=== PATIENT | female | born 1990 | race Caucasian/White ===

== ENCOUNTER 2021-09-25 19:04 | Emergency (ER) | payer OTHER, SELFPAY ==
[2021-09-25 19:10] VITALS: BP 155/86; PULSE 122; RESP 20; TEMP 38.6; O2SAT 98
--- NOTE | 2021-09-25 19:17 | ED.URI ---
HPI - URI/Sore Throat General Chief Complaint: Upper Respiratory Infection Stated Complaint: Fever/Low Back Pain Time Seen by Provider: 09/25/21 19:07 Source: patient, family and RN notes reviewed History of Present Illness HPI Narrative: Patient is a 30-year-old female who presents the urgent care with complaints of low back pain, fever, fatigue and body aches. Patient states she started symptoms this morning has not taken anything [id number]. States that she was advised from an on-call televisit not to treat her fever and to follow-up in urgent care . Patient states that her fever got as high as 102.5 Fahrenheit prior to arrival. Patient denies any abdominal pain, nausea, vomiting. Patient denies of any ill contacts. States that she has not had COVID and she has been vaccinated. No other acute complaints. No acute distress noted. Patient aware of the plan of care. Some parts of this dictation were generated by voice recognition software and may contain typographical and/or grammatical inaccuracies. Related Data Home Medications Medication Instructions Recorded Confirmed nifedipine 30 mg PO DAILY 09/25/21 09/25/21 Allergies Allergy/AdvReac Type Severity Reaction Status Date / Time cefprozil [From Cefzil] Allergy Rash Verified 09/25/21 19:16 Review of Systems Review of Systems: CONSTITUTIONAL: Reports of fever, chills, fatigue EYES: Denies visual changes, redness, or discharge. ENT: Denies of sore throat, otalgia, rhinorrhea and congestion CARDIOVASCULAR: Denies chest pain, palpitations, or edema. RESPIRATORY: Denies cough or dyspnea. GASTROINTESTINAL: Denies abdominal pain, nausea, vomiting, or diarrhea. GENITOURINARY: Denies dysuria or hematuria. SKIN: Denies rash or itching. MUSCULOSKELETAL: Reports of low back pain and body aches es back pain, joint pain, or myalgia. NEUROLOGIC: Denies headache, numbness, or weakness. PMFSH Comments At the time of my signature, I reviewed and agree with the nursing past medical, surgical, social, and family history. There is no relevant family history pertinent to the patient complaint. Exam Narrative: GENERAL: This is a well-nourished, well-developed patient, in no apparent distress. HEAD: normocephalic, atraumatic. EYES: PERRL. Sclera clear/white. Vision is grossly intact. EARS: External ears normal, auditory canals clear and without drainage, notable reconstruction to the left TM/scarring. Bilateral TMs without perforation. Hearing grossly intact. NOSE: External nose normal with no obvious nasal discharge, nares without redness, no rhinorrhea. THROAT: Mucous membranes moist, posterior pharynx clear. Absent tonsils. Mild postnasal drainage NECK: Neck supple CARDIOVASCULAR: Regular rate and rhythm without murmurs, gallops, or rubs. RESPIRATORY: Clear to auscultation. Breath sounds equal bilaterally. No wheezes, rales, or rhonchi. SKIN: Slightly flushed. Warm, intact with no suspicious lesions or rash, good texture and turgor. NEURO: awake, alert, and oriented to person, place and time. There were no obvious focal neurologic abnormalities. EXTREMITIES: No clubbing, cyanosis, or edema. BACK: Reports of low back pain Course Course Level of Care: Express Care Visit Vital Signs Vital signs: Vital Signs Temperature 101.4 F H 09/25/21 19:10 Pulse Rate 122 H 09/25/21 19:10 Respiratory Rate 20 09/25/21 19:10 Blood Pressure 155/86 H 09/25/21 19:10 Pulse Oximetry 98 09/25/21 19:10 Temperature 101.4 F H 09/25/21 19:10 Pulse Rate 122 H 09/25/21 19:10 Respiratory Rate 20 09/25/21 19:10 Blood Pressure 155/86 H 09/25/21 19:10 Pulse Oximetry 98 09/25/21 19:10 Reviewed- patient is informed that they may have pre-hypertension or hypertension based on a blood pressure reading in the department. I recommend the patient call the primary care provider listed on their discharge instructions or a physician of their choice this week to arrange follow-up for
== END 2021-09-25 19:58 | disposition home or self-care (01) ==
PROVIDERS: Emergency Provider Nurse Practitioner Family
DX: J02.9 Acute pharyngitis, unspecified (principal); Z20.822 Contact with and (suspected) exposure to COVID-19; E28.2 Polycystic ovarian syndrome; I10 Essential (primary) hypertension
CPT/HCPCS: 81003; 87426; 87804; 87880; 99213; C9803; G0463

== ENCOUNTER 2023-05-18 08:34 | Emergency (ER) | payer OTHER, SELFPAY ==
[2023-05-18 08:40] VITALS: BP 95/76; PULSE 95; RESP 16; TEMP 36.8; O2SAT 99
--- NOTE | 2023-05-18 09:19 | ED.SKABFB ---
HPI - Skin/Abscess/Foreign Bdy General Chief complaint: Skin/Abscess/Foreign Body Stated complaint: Rash Time Seen by Provider: 05/18/23 09:20 Source: patient Mode of arrival: ambulatory Limitations: no limitations History of Present Illness HPI narrative: 32-year-old female presented for complaint of Itchy red rash to the right side of her face, neck, and right shoulder. Onset 2 days ago. She states the rash was first noticed after taking Pepcid, however she also reports she tried on new clothes and cleared brush by the fence line 3 days before symptom onset. She has been applying Desitin cream to the face and taking it Benadryl With minimal relief. Denies lip, tongue, or throat swelling, shortness of breath or wheezing. Denies changes to soap, detergent, lotion, or any other exposures. No one else in the house or any contacts with similar symptoms. Pt is 26 weeks gestation. She contacted her obgyn stating she had hives but wanted to have it evaluated before taking a steroid. Related Data Home Medications Medication Instructions Recorded Confirmed vitamin-ferrous fumarate 1 tablet PO DAILY 05/18/23 05/18/23 28 mg iron-folic acid 800 mcg tablet ( Tablet) Allergies Allergy/AdvReac Type Severity Reaction Status Date / Time cefprozil [From Cefzil] Allergy Rash Verified 05/18/23 09:07 Review of Systems Review of Systems: CONSTITUTIONAL: Denies body aches, fever, chills, or sweats. EYES: Denies visual changes, redness, or discharge. ENT: Denies rhinorrhea, congestion CARDIOVASCULAR: Denies chest pain, palpitations, or edema. RESPIRATORY: Denies cough or dyspnea. GASTROINTESTINAL: Denies abdominal pain, nausea, vomiting, or diarrhea. SKIN: reports rash MUSCULOSKELETAL: Denies back pain, joint pain, or myalgia. NEUROLOGIC: Denies headache, numbness, tingling, or weakness. [facility] Past Medical History Medical History (Updated 05/18/23 @ 09:35 by Jeannette Bear APRN) Deafness in right ear Comments At time of signature, I have reviewed and agree with nursing past medical, surgical, social and family history unless otherwise noted. Please see nursing chart for further information. There is no relevant family history pertinent to the presenting complaint Exam Narrative: GENERAL: Well-appearing HEAD: Normocephalic, atraumatic. EYES: conjunctivae clear, and EOMI. ENT: Mucous membranes moist. Oropharynx without edema, erythema or lesions. NECK: Supple. No lymphadenopathy CHEST: Clear to auscultation. HEART: Regular rate and rhythm. SKIN: Warm, dry. Scattered vesicles on erythematous base to right face and across neck, right shoulder c/w contact dermatitis. No drainage/purulence, pain, or fluctuance. NEURO: Alert and oriented x3. Course Course Emergency Course: Patient is aware of diagnosis, understands and agrees to treatment plan. Anticipatory guidance given. Patient agrees to follow-up as directed and is aware of reasons to seek care at the emergency department. Portions of this record may have been created with voice recognition software Level of Care: Express Care Visit Vital Signs Vital signs: Vital Signs Temperature 98.3 F 05/18/23 08:40 Pulse Rate 95 05/18/23 08:40 Respiratory Rate 16 05/18/23 08:40 Blood Pressure 95/76 L 05/18/23 08:40 Pulse Oximetry 99 05/18/23 08:40 Oxygen Delivery Room Air 05/18/23 08:40 Temperature 98.3 F 05/18/23 08:40 Pulse Rate 95 05/18/23 08:40 Respiratory Rate 16 05/18/23 08:40 Blood Pressure 95/76 L 05/18/23 08:40 Pulse Oximetry 99 05/18/23 08:40 Oxygen Delivery Room Air 05/18/23 08:40 Reviewed MDM - Skin/Abscess/Foreign Bdy MDM Narrative Medical decision making narrative: Discussed physical exam findings c/w contact dermatitis. Advised supportive measures and signs/symptoms to go to the ER. Pt is appropriate for outpt treatment and f/u. Instructed patient to go t
== END 2023-05-18 09:35 | disposition home or self-care (01) ==
PROVIDERS: Emergency Provider Nurse Practitioner Family
DX: O99.712 Diseases of the skin and subcutaneous tissue complicating pregnancy, second trimester (principal); Z3A.26 26 weeks gestation of pregnancy; L25.9 Unspecified contact dermatitis, unspecified cause
CPT/HCPCS: 99211; G0463

== ENCOUNTER 2024-03-13 09:58 | Emergency (ER) | payer OTHER, SELFPAY ==
[2024-03-13 10:11] VITALS: BP 120/73; PULSE 74; RESP 18; TEMP 36.6; O2SAT 100
--- NOTE | 2024-03-13 10:33 | ED.EAR ---
HPI - Ear Problem General Chief complaint: Ear Stated complaint: Poss ear infection Time Seen by Provider: 03/13/24 10:33 Source: patient and RN notes reviewed Mode of arrival: ambulatory Limitations: no limitations History of Present Illness HPI Narrative: 33-year-old female presents with concern for left ear pain, lymph node swelling. She reports history of surgery on that ear. She denies fever, aches, chills, sweats. She reports postnasal drainage. She denies hearing changes. MD Complaint: ear pain Related Data Allergies Allergy/AdvReac Type Severity Reaction Status Date / Time cefprozil [From Cefzil] Allergy Rash Verified 05/18/23 09:07 Review of Systems Review of Systems: CONSTITUTIONAL: Denies malaise, chills, sweats, or fever. EYES: Denies visual changes, redness, or discharge. ENT: Denies rhinorrhea, congestion, sinus pain, and sore throat. Reports left ear pain, postnasal drainage, lymph node tenderness CARDIOVASCULAR: Denies chest pain, palpitations, or edema. RESPIRATORY: Denies cough. Denies dyspnea. GASTROINTESTINAL: Denies abdominal pain, nausea, vomiting, diarrhea SKIN: Denies rash or itching. MUSCULOSKELETAL: Denies myalgia. NEUROLOGIC: Denies headache. All systems reviewed & are unremarkable except as noted in HPI and below PMFSH Past Medical History Medical History (Updated 03/13/24 @ 10:39 by Randee Harding NP) Deafness in right ear Comments At time of signature, agree with nursing past medical, surgical, social and family history. There is no relevant family history pertinent to the presenting complaint Exam Narrative: GENERAL: Well-appearing, well-nourished, and in no acute distress. HEAD: Normocephalic EYES: PERRLA, conjunctivae clear ENT: Nares clear. Mucous membranes moist. TM pearly montiel with dull light reflex on the left, sharp on the right; no tragal tenderness. Oropharynx not erythematous without lesions. Tonsils not enlarged and without exudate, no drooling, no hoarseness, no trismus, uvula midline. NECK: Supple. No lymphadenopathy CHEST: Clear to auscultation, breath sounds equal. No wheezing, rhonchi, rales, or stridor. No respiratory distress, speaks in full sentences. HEART: Regular rate and rhythm. No murmur heard. SKIN: Warm, dry, no rash. NEURO: Alert and oriented x3. PSYCH: Normal mood and affect Course Course Emergency Course: Patient is aware of diagnosis, understands and agrees to treatment plan. Anticipatory guidance given. Patient agrees to follow-up as directed and is aware of reasons to seek care at the emergency department. Portions of this record may have been created with voice recognition software Level of Care: Express [facility] Visit Vital Signs Vital signs: Vital Signs Temperature 98 F 03/13/24 10:11 Pulse Rate 74 03/13/24 10:11 Respiratory Rate 18 03/13/24 10:11 Blood Pressure 120/73 03/13/24 10:11 Pulse Oximetry 100 03/13/24 10:11 Temperature 98 F 03/13/24 10:11 Pulse Rate 74 03/13/24 10:11 Respiratory Rate 18 03/13/24 10:11 Blood Pressure 120/73 03/13/24 10:11 Pulse Oximetry 100 03/13/24 10:11 Reviewed. Medical Decision Making MDM Narrative Medical decision making narrative: I evaluated this in the [facility]. History is obtained from patient who is an independent historian and physical exam was performed.? Available medical records were reviewed. ? Exam findings and relevant testing show no acute concerns or changes; patient is non-toxic appearing and is in no distress. Differential diagnosis considered: Hunt virus, strep pharyngitis, allergic rhinitis, upper respiratory tract infection, sinusitis, rhinosinusitis, nasopharyngitis. viral pharyngitis, otitis media, otitis externa, otitis effusion, cerumen impaction, foreign body. Exam findings show no acute concerns or changes; patient is non-toxic appearing and is in no distress. Patient is appropriate for outpatient treatment and follow-up. ? D
== END 2024-03-13 10:40 | disposition home or self-care (01) ==
PROVIDERS: Emergency Provider Nurse Practitioner
DX: H73.892 Other specified disorders of tympanic membrane, left ear (principal)
CPT/HCPCS: 99213; G0463

== ENCOUNTER 2024-07-10 16:30 | Emergency (ER) | payer OTHER, SELFPAY ==
--- NOTE | 2024-07-10 16:31 | ED_ITS ---
HPI - URI/Sore Throat General Chief Complaint: Upper Respiratory Infection Stated Complaint: poss sinus infection Time Seen by Provider: 07/10/24 16:36 Source: patient, RN notes reviewed and old records reviewed Mode of arrival: ambulatory Limitations: no limitations History of Present Illness HPI Narrative: 33-year-old female presents to the [facility] with sinus congestion for 5 days. Has been using Mucinex nasal spray Patient also states that she has tried taking Ashleigh-Casco with not much relief. Treatments prior to arrival: cold medicine Related Data Allergies Allergy/AdvReac Type Severity Reaction Status Date / Time cefprozil (From Cefzil) Allergy Rash Verified 07/10/24 16:36 Review of Systems Review of Systems: All systems reviewed & are unremarkable except as noted in HPI and below Constitutional: Constitutional: Reports no additional constitutional complaints ENT: Reports as per HPI Cardiovascular: Cardiovascular: Reports no additional cardiovascular complaints, Denies chest pain and Denies dyspnea Respiratory: Respiratory: Reports no additional respiratory complaints, Denies chest congestion, Denies cough and Denies dyspnea Musculoskeletal: Musculoskeletal: Reports no additional musculoskeletal complaints Integumentary/Breasts: Skin/Breast: Reports system reviewed and no additional complaints, except as docu PMFSH Past Medical History Medical History Deafness in right ear Comments At the time of my signature, I reviewed and agree with the nursing past medical, surgical, social, and family history. There is no relevant family history pertinent to the patient complaint. Exam Const: General: cooperative, healthy appearing, comfortable, no acute distress, well developed, alert and well nourished Nutritional Appearance: well nourished Orientation/consciousness: patient oriented x3 Limitations: no limitations HENMT: Head: normal to inspection Ears: external ears normal, EAC's normal, mastoids normal, no periauricular adenopathy and TM abnormal with fluid behind the TM on the left; not bulging Face/Nose/Sinus: Normal nasal mucous m embranes and turbinates present, normal facial exam and face symmetric Face and sinus: normal facial exam, face symmetric, no ecchymosis, no erythema and no edema Mouth: Yes Normal oral and palatal mucosa present, Yes lip normal, Yes tongue normal and Yes moist mucous membranes Throat: posterior oropharynx normal, uvula midline and no uvular edema Eyes: General: appearance normal, both eyes and all related structures Neck: Neck: normal visual inspection, full ROM, no lymphadenopathy and no meningeal signs Chest: Chest palpation & inspection: normal inspection of the chest Resp: Effort & Inspection: normal respiratory effort and able to speak in complete sentences Auscultation: clear to auscultation bilaterally, no crackles, no rales, no rhonchi and no wheezes Cardio: Rate: regular rate Skin: General skin exam: normal color and no rashes or lesions noted Neuro: General: patient oriented x3, gait normal, moves all extremities and no meningeal signs Cognition (Neuro): normal cognition Speech: normal speech Gait exam (Neuro): Normal gait present Extrem: General: normal to inspection, full ROM, capillary refill normal and normal gait Psych: Appearance: grossly normal and well kempt Mental Status: mental status grossly normal Speech and movement: Normal speech and movement present and Clear speech present Affect: normal affect Attitude: cooperative Course Course Level of Care: Express Care Visit Vital Signs Vital signs: Vital Signs Temperature 99.4 F 07/10/24 16:33 Pulse Rate 106 H 07/10/24 16:33 Respiratory Rate 16 07/10/24 16:33 Blood Pressure 133/87 07/10/24 16:33 Pulse Oximetry 100 07/10/24 16:33 Oxygen Delivery Room Air 07/10/24 16:33 Temperature 99.4 F 07/10/24 16:33 Pulse Rate 106 H 07/10/24 16:33 Respiratory Rate 16 07/10/24 16:33 Blood Pressure 133/87 07/10/24 16:33 Pulse Oximetry 100 07/10/24 16:33 Oxygen Delivery Room Air 07/10/24 16:33 Reviewed MDM - URI/Sore Throat MDM Narrative Medical decision making narrative: Patient sitting in exam room. Nontoxic, vitals stable. Patient with 5 day history of URI symptoms, sinusitis symptoms. Patient offered flu and COVID testing she declined. Patient's exam consistent with viral sinusitis, discussed [id number] treatments. Discharge instructions reviewed with patient, as well as provided in writing per nursing staff. The instructions also include specific and strict return/GO TO THE ER as well as f/u information. All questions have been answered, and the patient deny any further questions with discharge and discharge plan. Some parts of this dictation were generated by voice recognition software and may contain typographical and/or grammatical inaccuracies. Differential Diagnosis Differential diagnosis: Likely upper respiratory infection, sinusitis, viral infection and influenza Critical Care Time Critical Care Time Critical Care Time: No Discharge Plan Discharge Clinical Impression: Sinusitis Qualifiers: Sinusitis location: frontal Chronicity: acute Recurrence: not specified as recurrent Qualified Code(s): J01.10 - Acute frontal sinusitis, unspecified Patient Disposition: Home, Self-Care Condition: Stable Instructions: Antibiotic Form, Sinusitis (ED) Additional Instructions: Your symptoms are likely due to a viral illness, which is not treated with antibiotics. Typically viral infections last 7-10 days, can linger for couple of weeks. It is very important to treat your symptoms. Drink plenty of water, Gatorade, Pedialyte, ice pops or Jell-O. -Alternate Tylenol and Motrin per package directions for fever or pain. You can alternate every 4 hours -Antihistamine medication such as Benadryl at night and Zyrtec/Claritin/Karen during the day can help improve symptoms. -doing daily nasal irrigations can help relieve pressure your sinuses. Things like a Neti pot -Use Flonase twice a day for 5 days then daily to help reduce the inflammation and dry up your sinuses. -You can also use Mucinex. Be sure to drink plenty of water with this medication at least 8 ounces with every dose and it is important to drink 8 to 10 glasses of water per day. Water is a natural decongestant -Eat and drink things that are easy to swallow, like tea or soup, or popsicles. -Oral rinses such as: Salt water gargles and/or may use topical anesthetic (eg. Chloraseptic spray) or lozenges to relieve dryness or throat pain). -Frequent hand washing or hand paint crew supervisor is one of the best ways to prevent spread of infection. -Using a vaporizer or humidifier at night will also help thin secretions and help with coughing up phlegm. -Follow up with primary care provider in 7-10 days if condition is not improving - For new or worsening symptoms go directly to the nearest ER Patient Language: Nigerian Prescriptions: No Action methylprednisolone [Medrol (Cole)] 4 mg tablets,dose pack See Rx Instructions .ROUTE .COMPLEX Qty: 21 0RF Rx Instructions: orally per package directions Follow-up/Referrals: UNKNOWN,DOCTOR [Non-Staff] - Time of Disposition: 16:45
[2024-07-10 16:33] VITALS: BP 133/87; PULSE 106; RESP 16; TEMP 37.4; O2SAT 100
== END 2024-07-10 16:49 | disposition home or self-care (01) ==
PROVIDERS: Emergency Provider Nurse Practitioner
DX: J01.10 Acute frontal sinusitis, unspecified (principal)
CPT/HCPCS: 99213; G0463

== ENCOUNTER 2024-07-20 15:59 | Emergency (ER) | payer OTHER, SELFPAY ==
[2024-07-20 16:08] VITALS: BP 117/74; PULSE 111; RESP 16; TEMP 36.7; O2SAT 99
--- NOTE | 2024-07-20 17:06 | ED_ITS ---
HPI - URI/Sore Throat General Chief Complaint: Upper Respiratory Infection Stated Complaint: sinus infection Time Seen by Provider: 07/20/24 16:50 Source: patient, RN notes reviewed and old records reviewed Mode of arrival: ambulatory Limitations: no limitations History of Present Illness HPI Narrative: 33 year old female presents to [facility] care with complaints of left ear feeling clogged for about 2 weeks, patient also reports some green sinus drainage with sinus pressure and cough. Patient reports that she is deaf in her right ear. She states that she has been taking Mucinex orally and has also bee using nasal spray. Patient reports that she is nauseated from all the drainage. She states no known fevers, chills or sweats or any body aches, MD elicited complaint: cough, rhinorrhea, nasal congestion, sinus pain and other (left ear feels clogged) Onset (ago): week(s) (2) Severity: moderate Description of mucous: yellow and green Able to tolerate fluids by mouth: Yes Treatments prior to arrival: other (Mucinex and nasal spray) Related Data Allergies Allergy/AdvReac Type Severity Reaction Status Date / Time cefprozil (From Cefzil) Allergy Rash Verified 07/10/24 16:36 Review of Systems Review of Systems: CONSTITUTIONAL: Reports malaise, no chills, sweats, or fever. EYES: Denies visual changes, redness, or discharge. ENT: Reports rhinorrhea, congestion, sinus pain,left otalgia and no sore throat. CARDIOVASCULAR: Denies chest pain, palpitations, or edema. RESPIRATORY: Reports dry cough.? Denies dyspnea. GASTROINTESTINAL: Denies abdominal pain, some nausea,no vomiting, no iarrhea SKIN: Denies rash or itching. MUSCULOSKELETAL: Denies myalgia. NEUROLOGIC: Denies acute headache. All systems reviewed & are unremarkable except as noted in HPI and below PMFSH Past Medical History Medical History Deafness in right ear Surgical History Surgical History History of placement of ear tubes Social History Social History Gender identity (if verbalized by the patient): Female Comments At time of signature, agree with nursing past medical, surgical, social and family history. There is no relevant family history pertinent to the presenting complaint Exam Narrative: GENERAL: Well-appearing, well-nourished, and in no acute distress. HEAD: Normocephalic EYES: PERRLA, conjunctivae clear ENT: Nares clear, turbinates edematous and erythematous, yellow green discharge, sinus pressure Left TM red and bulging, Righ. Mucous membranes moist. TM pearly montiel with dull light reflex; no tragal tenderness. Oropharynx erythematous without lesions. Tonsils not enlarged and without exudate, no drooling, no hoarseness, no trismus, uvula midline.post nasal drainage noted NECK: Supple. No lymphadenopathy CHEST: Clear to auscultation, breath sounds equal. No wheezing, rhonchi, rales, or stridor. No respiratory distress, speaks in full sentences.dry cough SAO2 99% on room air HEART: Regular rate and rhythm. No murmur heard. SKIN: Warm, dry, no rash. NEURO: Alert and oriented x3. PSYCH: Normal mood and affect Course Course Emergency Course: Patient is aware of diagnosis, understands and agrees to treatment plan.? Anticipatory guidance given.? Patient agrees to follow-up as directed and is aware of reasons to seek care at the emergency department. Portions of this record may have been created with voice recognition software Level of Care: Express Care Visit Vital Signs Vital signs: Vital Signs Temperature 36.7 C 07/20/24 16:08 Pulse Rate 111 H 07/20/24 16:08 Respiratory Rate 16 07/20/24 16:08 Blood Pressure 117/74 07/20/24 16:08 Pulse Oximetry 99 07/20/24 16:08 Oxygen Delivery Room Air 07/20/24 16:08 Temperature 36.7 C 07/20/24 16:08 Pulse Rate 111 H 07/20/24 16:08 Respiratory Rate 16 07/20/24 16:08 Blood Pressure 117/74 07/20/24 16:08 Pulse Oximetry 99 07/20/24 16:08 Oxygen Delivery Room Air 07/20/24 16:08 Reviewed MDM - URI/Sore Throat MDM Narrative Medical decision making narrative: Differential diagnosis considered: Hunt virus, strep pharyngitis, allergic rhinitis, upper respiratory tract infection, sinusitis, rhinosinusitis, nasopharyngitis. viral pharyngitis, otitis media, otitis externa, pneumonia, bronchitis, viral cough syndrome, viral syndrome, and influenza.? Exam findings show no acute concerns or changes; patient is non-toxic appearing and is in no distress.? Patient is appropriate for outpatient treatment and follow-up. Differential Diagnosis Differential diagnosis: Likely upper respiratory infection, otitis media, sinusitis and viral infection Medical Records Attestation: I reviewed the patient's medical records. Lab Data Attestation: I reviewed the patient's lab results. Critical Care Time Critical Care Time Critical Care Time: No Discharge Plan Discharge Clinical Impression: Otitis media Qualifiers: Otitis media type: serous Chronicity: acute Laterality: left Recurrence: not specified as recurrent Qualified Code(s): H65.02 - Acute serous otitis media, left ear Upper respiratory infection Qualifiers: URI type: unspecified URI Qualified Code(s): J06.9 - Acute upper respiratory infection, unspecified Patient Disposition: Home, Self-Care Condition: Stable Instructions: Antibiotic Form, Ear Infection (GEN), Upper Respiratory Infection (ED) Additional Instructions: Increase fluids especially juices and water Keml-bnq-yscyzby cough and cold medicine of your choice for your symptoms Zyrtec Claritin or Karen daily may include plain Sudafed in a.m. heat to the face 20-30 minutes 4-6 times a day for pain Salt water gargles, throat lozenges or throat sprays as desired Antibiotic as directed--finished the medication Tylenol or ibuprofen for any fever pain If your symptoms persist, change or worsen significantly before you can contact your personal physician then please, without delay, go to the emergency department for further evaluation. Follow-up with PCP in 7-10 days or sooner if needed Patient Language: Icelandic Prescriptions: New azithromycin 250 mg tablet See Rx Instructions .ROUTE .COMPLEX Qty: 6 0RF Rx Instructions: For 250 mg dose pack: take 500 mg today (day 1), then 250 mg for 4 days (days 2-5) methylprednisolone [Medrol (Cole)] 4 mg tablets,dose pack See Rx Instructions .ROUTE .COMPLEX Qty: 21 0RF Rx Instructions: orally per package directions No Action methylprednisolone [Medrol (Cole)] 4 mg tablets,dose pack See Rx Instructions .ROUTE .COMPLEX Qty: 21 0RF Rx Instructions: orally per package directions Follow-up/Referrals: PHYSICIAN NOT ON STAFF,NONSTAFF [Primary Care Provider] - Time of Disposition: 17:16 Quality [place] Coma Scale Eyes: Open Verbal: Oriented and Alert Motor: Follows Commands Griffin Coma Total Score: 15
== END 2024-07-20 17:24 | disposition home or self-care (01) ==
PROVIDERS: Emergency Provider Registered Nurse
DX: H65.02 Acute serous otitis media, left ear (principal); J06.9 Acute upper respiratory infection, unspecified
CPT/HCPCS: 99213; G0463

== ENCOUNTER 2025-02-14 19:26 | Emergency (ER) | payer OTHER, SELFPAY ==
--- OUTSIDE RECORDS SUMMARY | 2025-02-14 19:30 | XMS_ITS | Clinical Summary ---
Author Organization [facility] Address [address] [place] [id number] Care Team Providers Care Range Management Specialist Name Role Phone Miscellaneous, Not In File Primary Care Provider Unavailable Allergies Active Allergy Reactions Criticality Noted Date Comments Cefprozil Other (See comments) Low erythema multiforme Medications cyanocobalamin (Vitamin B-12) 1,000 mcg tablet Take 1 tablet (1,000 mcg total) by mouth daily Active [id number] acid 29 mg iron- 1 mg tablet,chewable Take by mouth daily Active calcium carbonate-vit D3-min 600 mg calcium- 200 unit tablet Take by mouth Active ascorbic acid (vitamin C) 100 mg tablet Take 1 tablet (100 mg total) by mouth daily Active Active Problems Problem Noted Date Diagnosed Date H/O gastric sleeve 04/18/2023 Velamentous insertion of umbilical cord in third trimester 04/18/2023 PCOS (polycystic ovarian syndrome) 07/30/2019 Severe obesity (BMI >= 40) 07/24/2019 Hypertension 07/24/2019 Surgical History Surgery Date Site/Laterality Comments TONSILLECTOMY 07/22/1998 - 07/21/1999 TYMPANOSTOMY TUBE PLACEMENT [id number] tubes in ears several times ages 1-10 TYMPANOPLASTY 07/22/1994 - 07/21/1995 OTHER SURGICAL HISTORY Gastric Sleeve Medical History Medical History Date Comments Genital 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 GERD (gastroesophageal reflux disease) Deafness in right ear Anxiety especially preme nstrually Migraine headache Seasonal allergies History of PCOS Hypertension Steatosis of liver Sleep apnea Family History Medical History Relation Name Comments Hyperlipidemia Father Breast cancer Father's Sister Crohn's disease Father's Sister Hypertension Maternal Grandfather Lung cancer Maternal Grandfather COD COPD Maternal Grandmother COD Diabetes Maternal Grandmother Heart attack Maternal Grandmother Hypertension Maternal Grandmother Stroke Maternal Grandmother Breast cancer Maternal Great-Grandmother Hypertension Mother Diabetes Mother's Brother 1 Heart attack Mother's Brother 2 Colon cancer Mother's Brother 3 Diabetes Mother's Sister Diabetes Paternal Grandfather Heart attack Paternal Grandfather Hypertension Paternal Grandfather Hypertension Paternal Grandmother Stroke Paternal Grandmother Relation Name Status Comments Father Father's Sister Maternal Grandfather Maternal Grandmother Maternal Great-Grandmother Mother Mother's Brother 1 Mother's Brother 2 Mother's Brother 3 Mother's Sister Paternal Grandfather Paternal Grandmother Social History Tobacco Use Types Packs/Day Years Used Date Smoking Tobacco: Former Cigarettes Q uit: 2013 Smokeless Tobacco: Never Tobacco Cessation:Counseling Given: Not Answered Alcohol Use Standard Drinks/Week Comments Yes 2 (1 standard drink = 0.6 oz pur e alcohol) Occasional AUDIT-C Answer Date Recorded Q1: How often do you have a drink containing alcohol? Never 04/18/2023 Q2: How many drinks containi ng alcohol do you have on a typical day when you are drinking? Patient does not drink Q3: How often do you have si x or more drinks on one occasion? 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 on file Not on fi le Obstetrics History Para Term AB IAB SAB Ectopic Multiple Livin g Live Births 1 0 0 0 0 0 0 0 0 0 0 Date Outcome GA Total Labor Labor/2nd/3rd Weight Sex Type Anes PTL Barbie A1 A5 Name Clin Last Filed Vital Signs Vital Sign Reading Time Taken Comments Blood Pressure 108/72 08/09/2023 10:13 AM SOAP DRIER TENDER Pulse 82 12/10/2020 12:51 AM CDT Temperature 36.9 C (98.4 F) 12/10/2020 12:02 AM CDT Respiratory Rate 17 12/10/2020 12:51 AM CDT Oxygen Saturation 98% 12/10/2020 12:51 AM CDT Inhaled Oxygen Concentration - - Weight 98.4 kg (217 lb) 08/09/2023 10:13 AM SOAP DRIER TENDER Height 160 cm (5' 2.99) 07/08/2023 11:14 AM SOAP DRIER TENDER Body Mass Index 38.45 07/08/2023 11:14 AM SOAP DRIER TENDER Plan of Treatment Health Maintenance Due Date Last Done Comments Cervical Cancer Screening 1989 Depression Screening 1989 Hepatitis C Screening 1989 Varicella Vaccines (1 of 2 - 13+ 2-dose series) 2002 Hepatitis B Screening 12/21/2007 HPV Vaccines (1 - 3-dose SCD M series) 2016 Regular Well Visit/Exam 18-64 07/24/2020 07/24/2019 Influenza Vaccine (#1) 2025 03/22/2013 DTaP/Tdap/Td Vaccine (2 - Td or Tdap) 06/07/2033 06/07/2023 Pneumococcal vaccine <65 Aged Out No longer eligible based on patient's age to complete this topic [facility] CIGNA ALLEGIANCE Member Subscriber Plan / Payer (Ef fective 2022-Present) Name:Isadora Nagel Relation to Subscriber:Self Name:Isadora Nagel Payer ID:[id number] ([facility]) Type:SHREYA HMO/PPO Address: [facility] [id number] [place] [id number] Care Teams Range Management Specialist Relationship Specialty Start Date End Date Miscellaneous, Not In File PCP - General 04/20/18
--- OUTSIDE RECORDS SUMMARY | 2025-02-14 19:30 | XMS_ITS | Clinical Summary ---
Author Organization [facility] [employer] [place] Address [address] [place] [address] [place] [address] Care Team Providers Care Roll Winder Name Role Phone Gricelda Michaels MD Primary Care Provider [phone] Allergies Active Allergy Reactions Criticality Noted Date Comments Cefprozil Unknown,Other (See Comments) Low 12/11/2017 erythema multiforme Medications multivit-min/iron /folic acid/K (BARIATRIC MULTIVITAMINS ORAL) Take by mouth. Activ e cyanocobalamin (vit B-12) 1,000 mcg tablet Take 1,000 mcg by mouth daily. JESSICA MELTS Active CALCIUM CARBONATE ORAL Take by mouth. JESSICA MELTS Active omeprazole (PriLOSEC) 40 mg Capsule, Delayed Release(E.C.) Take 1 Capsule by mouth daily. please open capsule and take contents with apple sauce or comparable alternative 30 Capsule 2 4 Active Active Problems Problem Noted Date Diagnosed Date HTN (hypertension), benign 09/24/2019 IFG (impaired fasting glucose) 09/24/2019 Elevated testosterone level in female 09/24/2019 Morbid obesity with body mass index of 40.0-49.9 12/11/2017 Encounters Date Type Department Care Team Description 02/03/2025 External Device Data [facility] ABSTRACTION Provider, Abstract 01/19/2025 External Device Data [facility]STRACTION Provider, Abstract 01/06/2025 External Device Data [facility]CTION Provider, Abstract 12/11/2024 External Device Data [facility] Provider, Abstract from Last 3 Months Immunizations Immunization Administration Dates Next Due (PFIZER)(12 YR UP) COVID-19 VACCINE - EMERGENCY USE AUTHORIZATION, MRNA, [id number](PF) 30 MCG/0.3 ML IM SUSP 06/14/2021,05/23/2021 Family History Medical History Relation Name Comments Diabetes Father Hernandez Lung Cancer Maternal Grandfather Gabriel Diabetes Maternal Grandmother Christine Hypertension Mother Sushila Breast Cancer Paternal Aunt Heart Attack Paternal Grandfather Alzheimer's Disease Paternal Grandmother No Known Problems Sister Relation Name Status Comments Father Hernandez Alive Maternal Grandfather Gabriel Maternal Grandmother Christine Mother Sushila Alive Paternal Aunt Paternal Grandfather Paternal Grandmother Alive Sister Alive Social History Tobacco Use Types Packs/Day Years Used Date Smoking Tobacco: Never Smokeless Tobacco: Never Tobacco Cessation:Counseling Given: Not Answered Alcohol Use Standard Drinks/Week Comments Not Currently 0 (1 standard drink = 0.6 oz pur e alcohol) Occassionally Comments No Sex and Gender Information Value Date Recorded Sex Assigned at Not on file Legal Sex Female 4:54 AM SPRING INTERN Gender Identity Not on file Sexual Orientation Not on file Last Filed Vital Signs Vital Sign Reading Time Taken Comments Blood Pressure 123/73 04/02/2024 9:12 AM CDT Pulse 90 04/02/2024 9:12 AM CDT Temperature 36.8 C (98.3 F) 05/25/2022 12:29 PM CDT Respiratory Rate 16 05/25/2022 12:29 PM CDT Oxygen Saturation 100% 04/02/2024 9:12 AM CDT Inhaled Oxygen Concentration - - Weight 96.6 kg (213 lb) 07/06/2024 7:36 AM SPRING INTERN Height 160 cm (5' 3) 04/02/2024 9:12 AM CDT Body Mass Index 37.73 04/02/2024 9:12 AM CDT Plan of Treatment Health Maintenance Due Date Last Done Comments HPV VACCINES (1 - 3-dose series) 2004 HEPATITIS B VACCINES (1 of 3 - 19+ 3-dose series) 2008 HPV/Cotest (21-29) 2010 HPV/Cotest (30-65) 12/21/2019 CERVICAL CANCER SCREENING 07/22/2022 PAP SMEAR 07/22/2022 07/22/2019, 07/2017 (Previously completed) COVID-19 Vaccine (2023-2 5 season) 2024 06/14/2021, 05/23/2021 INFLUENZA VACCINE (#1) 2025 08/22/2021 Pre-Diabetes and Diabetes Screening 03/31/2027 03/31/2024, 07/25/2022, 05/21/2022, Additional history exists DTAP/TDAP/TD VACCINES (2 - T d or Tdap) 06/07/2033 06/07/2023 Procedures Procedure Name Priority Date/Time Associated Diagnosis Comments HEMOGLOBIN A1C Routine 03/31/2024 8:24 AM CDT Intestinal malabsorption following gastrectomy from Last 3 Months or Most Recently Relevant to Health Maintenance Results * HEMOGLOBIN A1C (03/31/2024 8:24 AM CDT) HEMOGLOBIN A1C 5.1 <5.7 % of total Hgb [facility] Comment: For the purpose of screening for the presence of diabetes: <5.7% Consistent with the absence of diabetes 5.7-6.4% Consistent with increased risk for diabetes (prediabetes) > or =6.5% Consistent with diabetes This assay result is consistent with a decreased risk of diabetes. Currently, no consensus exists regarding use of hemoglobin A1c for diagnosis of diabetes in children. According to [place] Diabetes Association (ADA) guidelines, hemoglobin A1c <7.0% represents optimal control in non- diabetic patients. Different metrics may apply to specific patient populations. Standards of Medical Care in Diabetes(ADA). ESTIMATED AVERAGE GLUCOSE (MG/DL) 100 mg/dL [facility] ESTIMATED AVERAGE GLUCOSE (MMOL/L) 5.5 mmol/L [facility] Comment: This test was performed on the [employer] abigail c503 platform. Effective 10/07/23, a change in test platforms from the [employer] Property Consultant to the Shanna abigail c503 may have shifted HbA1c results compared to historical results. Based on laboratory validation testing conducted at [facility], the Shanna platform relative to the Gonzalez platform had an average increase in HbA1c value of < or = 0.3%. This difference is within accepted variability established by the National Glycohemoglobin Standardization Program. Note that not all individuals will have had a shift in their results and direct comparisons between historical and current results for testing conducted on different platforms is not recommended. FASTING:YES FASTING: YES Test Performed at: [facility] [address] [address] [phone] Vonda Marcos Vo Blood 03/31/2024 8:24 AM CDT 03/31/2024 8:24 AM CDT us Rosemary TORREZ CHEMISTRY ORDERABLES Denisse l Result [facility] [phone] [facility] [address] [address] [phone] from Last 3 Months or Most Recently Relevant to Health Maintenance Insurance [employer] Express ALLEGIANCE OPEN ACCESS Advance Directives For more information, please contact: [phone] * Full Code (Latest Code Status on File) Date Activated Date Inactivated Comments 05/24/2022 3:38 PM 05/25/2022 4:39 PM * Full Code Date Activated Date Inactivated Comments 05/24/2022 11:23 AM 05/24/2022 3:38 PM * Full Code Date Activated Date Inactivated Comments 02/16/2022 10:13 AM 02/16/2022 1:37 PM Care Teams Roll Winder Relationship Specialty Start Date End Date Gricelda Michaels MD [address] [place] [phone] PCP - General Family Practice 02/02/22
--- OUTSIDE RECORDS SUMMARY | 2025-02-14 19:30 | XMS_ITS | Encounter Summary ---
Author Organization [facility] Address [address] [facility] [facility] [place] [address] Care Team Providers Care Peoplesoft Hcm Developer Name Role Phone Reinaldo Ladd MD Primary Care Provider Encounter Details Date Type Department Care Team (Late st Contact Info) Description 04/15/[address] [facility] [address] [place] [address] Jeannette العلي DO [address] [facility] [address] [place] [address] Social History Tobacco Use Types Packs/Day Years Used Date Smoking Tobacco: Never Assessed Comments Unknown Sex and Gender Information Value Date Recorded Sex Assigned at Not on file Legal Sex Female 5:37 AM GUARD SUPERVISOR Gender Identity Not on file Sexual Orientation Not on file documented as of this encounter Plan of Treatment Not on file documented as of this encounter Procedures Procedure Name Priority Date/Time Associated Diagnosis Comments DERMATOPATHOLOGY Routine 04/14/2019 12:0 0 AM CDT documented in this encounter Results * DERMATOPATHOLOGY (04/14/2019 12:00 AM CDT) Case Report Dermatopathology Report Case: [id number] Authorizing Provider: Jeannette العلي DO Collected: 04/14/2019 12:00 AM Ordering Location: [facility] Received: 04/15/2019 09:40 AM Pathologist: Francisco De La Cruz MD Specimen: Skin, right upper back 9 5:00 PM CDT DERMATOPATHOLOGY LABORATORY Final Diagnosis Specimen A. SKIN, right upper back: DERMATOFIBROMA (D23.9) TATTOO (L81.8) 9 5:00 PM CDT DERMATOPATHOLOGY LABORATORY at 1700 CDT Clinical History DF R/O atypia 9 5:00 PM CDT DERMATOPATHOLOGY LABORATORY Gross Description Specimen A: Received is one formalin filled container labeled with the patient's name and designated right upper back. The specimen consists of a shave biopsy measuring 7x5x2 mm. Jar 0. 9 5:00 PM CDT DERMATOPATHOLOGY LABORATORY Microscopic Description Specimen A. SKIN, right upper back: There is epidermal hyperplasia. Within the dermis, there are fibrohistiocytic cells in haphazard array among coarse collagen bundles. There is granular pigment in macrophages and free within the dermis. 9 5:00 PM CDT DERMATOPATHOLOGY LABORATORY Disclaimer An external and internal positive and negative controls are appropriate for the histochemical, immunohistochemical and immunofluorescence stain(s) in this case (if any), except where stated explicitly. The performance characteristics of the stain(s) cited in this report were developed and its performance characteristic determined by the Dermatopathology Laboratory at [facility], directed by Dr. Renetta De La Cruz. These tests need not be, and therefore are not, approved by the [place] Food and Drug Administration. The tests are used for clinical purposes. Billing Codes Specimen Charges Stain Charges 85567 1 9 5:00 PM CDT DERMATOPATHOLOGY LABORATORY Embedded Images 9 5:00 PM CDT DERMATOPATHOLOGY LABORATORY Pathology/Cytolog y TISSUE SPECIMEN FROM SKIN / Unknown 04/14/2019 04/15/2019 9:40 AM CDT us Jeannette العلي DO LAB - PATHOLOGY/CYTOLOGY ORDERABLES Final Result DERMATOPATHOLOGY LABORATORY [facility] - Department of Dermatology [address] [place] [address], [address] [place] [address], [facility] [phone] documented in this encounter Visit Diagnoses Not on filedocumented in this encounter Care Teams Peoplesoft Hcm Developer Relationship Specialty Start Date End Date Reinaldo Ladd MD [id number] [place] [address] PCP - General Family Medicine 04/06/19 documented as of this encounter
--- OUTSIDE RECORDS SUMMARY | 2025-02-14 19:30 | XMS_ITS | Referral Summary ---
Author Organization [facility] Address [address] [place] [address] Care Team Providers Care Joint Yarner Name Role Phone Miscellaneous, Not In File Primary Care Provider Unavailable Allergies Active Allergy Reactions Criticality Noted Date Comments Cefprozil Other (See comments) Low erythema multiforme Medications cyanocobalamin (Vitamin B-12) 1,000 mcg tablet Take 1 tablet (1,000 mcg total) by mouth daily Active [id number] acid 29 mg iron- 1 mg tablet,chewable [...] obesity (BMI >= 40) 07/24/2019 Hypertension 07/24/2019 Social History Tobacco Use Types Packs/Day Years [...] on file Legal Sex Female 1:47 AM HOTEL ADMINISTRATIVE ASSISTANT Gender Identity Female 05/09/2023 9:41 AM CDT Sexual Orientation Straight 05/09/2023 9: 41 AM CDT 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 on file Not on fi le Last Filed Vital Signs Vital Sign Reading Time Taken Comments Blood Pressure 108/72 08/09/2023 10:13 AM HOTEL ADMINISTRATIVE ASSISTANT Pulse 82 12/10/2020 12:51 AM CDT Temperature 36.9 C (98.4 F) 12/10/2020 12:02 AM CDT Respiratory Rate 17 12/10/2020 12:51 AM CDT Oxygen Saturation 98% 12/10/2020 12:51 AM CDT Inhaled Oxygen Concentration - - Weight 98.4 kg (217 lb) 08/09/2023 10:13 AM HOTEL ADMINISTRATIVE ASSISTANT Height 160 cm (5' 2.99) 07/08/2023 11:14 AM HOTEL ADMINISTRATIVE ASSISTANT Body Mass Index 38.45 07/08/2023 11:14 AM HOTEL ADMINISTRATIVE ASSISTANT Plan of Treatment Not on file Insurance [facility] CIG[employer] ALLEGIANCE Care Teams Joint Yarner Relationship Specialty Start Date End Date Miscellaneous, Not In File PCP - General 04/20/18
--- OUTSIDE RECORDS SUMMARY | 2025-02-14 19:30 | XMS_ITS ---
Author Organization [facility] Produ ction (ClinicalSummary Clone) Address Unknown Care Team Providers Care Silver Lap Machine Tender Name Role Phone Unavailable Primary Care Physician Unavailab le Results * [UNITY] CARRIER SCREEN Performed by: [employer] Component Value Range Date Sickle Cell Disease/Beta-Thalassemia/Hemo globinopathies carrier screen NEGATIVE 11/10/2024 03:29 pm UTC Alpha-Thalassemia carrier screen NEGATIVE 11/10/2024 03:29 pm UTC Cystic Fibrosis carrier screen NEGATIVE 11/10/2024 03:29 pm UTC Spinal Muscular Atrophy carrier screen NEGATIVE 2 SMN1 copies, SNP not present 11/10/2024 03:29 pm [place] For detailed report, see PDF See PDF 11/10/2024 03:29 pm UTC 11/10/2024 03:2 9 pm [facility] Social History Observation Value Start Date End Date
--- OUTSIDE RECORDS SUMMARY | 2025-02-14 19:30 | XMS_ITS ---
Author Organization [facility] Produ ction (ClinicalSummary Clone) Address Unknown Care Team Providers Care Enamel Cracker Name Role Phone Unavailable Primary Care Physician Unavailab le Results * [UNITY] ANEUPLOIDY NIPT Performed by: [employer] Component Value Range Date Fraction 8.1% 11/06/2024 10 :26 pm UTC Rh(D) NIPT RhD DETECTED 11/06/2024 10:2 6 pm UTC Sex Chromosome Aneuploidy NOT DETECTED 10:26 pm UTC Monosomy X LOW RISK <1 in 10,000 2024 10:26 pm UTC Trisomy 13 LOW RISK <1 in 10,000 2024 10:26 pm UTC Trisomy 18 LOW RISK <1 in 10,000 2024 10:26 pm UTC Trisomy 21 LOW RISK <1 in 10,000 2024 10:26 pm UTC Sex MALE 11/06/2024 10:2 6 pm UTC Gestation MAJANO 11/07/19 10:26 pm UTC For detailed report, see PDF See PDF 11/06/2024 10:26 pm UTC 11/06/2024 10:2 6 pm UTC Social History Observation Value Start Date End Date
--- OUTSIDE RECORDS SUMMARY | 2025-02-14 19:30 | XMS_ITS | Encounter Summary ---
Author Organization [facility] Address [address] [place] [address] Care Team Providers Care Copy Chaser Name Role Phone Gricelda Michaels MD Primary Care Provider [phone] Encounter Details Date Type Department Care Team (Late st Contact Info) Description 04/27/[address] 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 No / Unsure 04/11/2022 8:30 AM CDT documented as of this encounter Plan of Treatment Not on file documented as of this encounter Visit Diagnoses Not on filedocumented in this encounter Care Teams Copy Chaser Relationship Specialty Start Date End Date Gricelda Michaels MD [address] [place] [phone] PCP - General Family Practice 02/02/22 documented as of this encounter
--- OUTSIDE RECORDS SUMMARY | 2025-02-14 19:30 | XMS_ITS | Clinical Summary ---
Author Organization [facility] Address [address] [place] [address] Care Team Providers Care Supervisor Money Room Name Role Phone Reinaldo Ladd MD Primary Care Provider Source Comments [facility],non-[facility] Affiliates and Associated Physician Practices is amultiple site organization consisting of ambulatory clinics and hospital sitesin [place] and [place]. This disclosure is being madepursuant to the Care Everywhere program and may not contain all information available regarding this patient. Last updated 18.[facility] Allergies Active Allergy Reactions Criticality Noted Date Comments Cefprozil Unknown 12/11/2017 Medications * Be aware that medications may not be up to date on this document. Alwaysverify current medications with the patient. clomiPHENE Citrate (CLOMID PO) Active fluticasone propionate (FLONASE) 50 MCG/ACT nasal sprayIndications :Acute otitis media, unspecified otitis media type [place] 2 (two) sprays into each nostril once daily 1 Each 05/16/2021 Active Active Problems Problem Noted Date Diagnosed Date Elevated testosterone level in female 09/24/2019 IFG (impaired fasting glucose) 09/24/2019 PCOS (polycystic ovarian syndrome) 07/30/2019 Hypertension Purging Family History Medical History Relation Name Comments Diabetes - Type 2 Father Hypertension Father Hypertension Mother Relation Name Status Comments Father Mother Social History Tobacco Use Types Packs/Day Years Used Date Smoking Tobacco: Former Smokeless Tobacco: Never Alcohol Use Standard Drinks/Week Comments Yes 3 (1 standard drink = 0.6 oz pur e alcohol) Comments Unknown Sex and Gender Information Value Date Recorded Sex Assigned at Not on file Legal Sex Female 5:37 AM ASSURANCE ASSISTANT Gender Identity Not on file Sexual Orientation Not on file Last Filed Vital Signs Vital Sign Reading Time Taken Comments Blood Pressure 128/78 05/16/2021 5:40 PM CDT Pulse 101 05/16/2021 5:40 PM CDT Temperature 37.2 C (99 F) 05/16/2021 5:40 PM CDT Respiratory Rate 16 04/06/2019 12:47 PM CDT Oxygen Saturation 98% 05/16/2021 5:40 PM CDT Inhaled Oxygen Concentration - - Weight 125.6 kg (277 lb) 05/16/2021 5:40 PM CDT Height 160 cm (5' 3) 05/16/2021 5:40 PM CDT Body Mass Index 49.07 05/16/2021 5:40 PM CDT Plan of Treatment Health Maintenance Due Date Last Done Comments HIV SCREENING 2004 HEPATITIS C SCREENING 12/16/2007 DTAP/TDAP/TD VACCINES (1 - Tdap) 2008 HEPATITIS B VACCINE (1 of 3 - 19+ 3-dose series) 2008 HPV VACCINE (1 - 3-dose SCDM series) 2016 COVID-19 VACCINE ( - 2023-2 5 season) 2024 DEPRESSION SCREENING 07/22/2024 INFLUENZA VACCINE (#1) 2025 03/22/2013 ZOSTER VACCINE (1 of 2) 12/21/2039 HIB VACCINE Aged Out No longer eligi ble based on patient's age to complete this topic MENINGOCOCCAL (Group B) VACC INE SHARED DECISION-MAKING Aged Out No longer eligibl e based on patient's age to complete this topic MENINGOCOCCAL GROUPS A/C/Y/W VACCINE Aged Out No longer eligible b ased on patient's age to complete this topic PNEUMOCOCCAL VACCINE Aged Out No long er eligible based on patient's age to complete this topic Insurance Member Subscriber Plan / Payer (Ef fective 2014-Present) Name:Isadora Conner Relation to Subscriber:Self Name:Isadora Conner Payer ID:[id number] (NAIC) Type:PPO Address: [address] Care Teams Supervisor Money Room Relationship Specialty Start Date End Date Reinaldo Ladd MD [facility] Care [address] [place] [id number] PCP - General Family Medicine 04/06/19
--- OUTSIDE RECORDS SUMMARY | 2025-02-14 19:30 | XMS_ITS | Encounter Summary ---
Author Organization [facility] Address 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
--- OUTSIDE RECORDS SUMMARY | 2025-02-14 19:30 | XMS_ITS | Encounter Summary ---
Author Organization [facility] Address [address] [place] [address] Care Team Providers Care Veneer Clipper Helper Name Role Phone Gricelda Michaels MD Primary Care Provider [phone] Encounter Details Date Type Department Care Team (Late st Contact Info) Description 05/11/2022 Abstract [facility] Surgical Spec [place] [address] [place] [address] Sonia Hamilton MD [address] [place] [address] Social History Tobacco Use Types Packs/Day Years Used Date Smoking Tobacco: Never Smokeless Tobacco: Never Alcohol Use Standard Drinks/Week Comments Yes 0 (1 standard drink = 0.6 oz pur e alcohol) Occassionally Comments No Sex and Gender Information Value Date Recorded Sex Assigned at Not on file 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
--- OUTSIDE RECORDS SUMMARY | 2025-02-14 19:30 | XMS_ITS | Encounter Summary ---
Author Organization [facility] Address [address] [place] [address] Care Team Providers Care Sterile Process Coordinator Name Role Phone Gricelda Michaels MD Primary Care Provider [phone] Encounter Details Date Type Department Care Team (Late st Contact Info) Description 01/19/[address] [facility] Surgical Spec [place] [address] [place] [address] Sonia Hamilton MD [address] [place] [address] Social History Tobacco Use Types Packs/Day Years Used Date Smoking Tobacco: Never Smokeless Tobacco: Never Alcohol Use Standard Drinks/Week Comments Yes 0 (1 standard drink = 0.6 oz pur e alcohol) Occassionally Comments No Sex and Gender Information Value Date Recorded Sex Assigned at Not on file Legal Sex Female 4:54 AM HALL TENDER Gender Identity Not on file Sexual Orientation Not on file documented as of this encounter Plan of Treatment Not on file documented as of this encounter Visit Diagnoses Not on filedocumented in this encounter Care Teams Sterile Process Coordinator Relationship Specialty Start Date End Date Gricelda Michaels MD [address] [place] [phone] PCP - General Family Practice 02/02/22 documented as of this encounter
--- OUTSIDE RECORDS SUMMARY | 2025-02-14 19:30 | XMS_ITS | Encounter Summary ---
Author Organization [facility] Address [address] [place] [address] Care Team Providers Care Cash Crop Farmer Name Role Phone Gricelda Michaels MD Primary Care Provider [phone] Encounter Details Date Type Department Care Team (Latest Contact Info) Description 08/30/1999 Outpatient Historical HIS [facility] OBED Aleman, Camacho Johnson MD [address] [place] [address] Infectious mononucleosis (Primary Dx) Social History Tobacco Use Types Packs/Day Years Used Date Smoking Tobacco: Never Assessed Comments Unknown Sex and Gender Information Value Date Recorded Sex Assigned at Not on file Legal Sex Female 4:54 AM PINION SORTER Gender Identity Not on file Sexual Orientation Not on file documented as of this encounter Plan of Treatment Not on file documented as of this encounter Visit Diagnoses Diagnosis Infectious mononucleosis- Primary documented in this encounter Care Teams Cash Crop Farmer Relationship Specialty Start Date End Date Gricelda Michaels MD [address] [place], [place] [address] [place] [phone] PCP - General Family Practice 02/02/22 documented as of this encounter
[2025-02-14 19:33] VITALS: BP 121/81; PULSE 93; RESP 16; TEMP 36.7; O2SAT 100
--- NOTE | 2025-02-14 19:38 | ED_ITS ---
HPI - Ear Problem General Chief complaint: Ear Stated complaint: Possible Ear infection patient presents to express care with complaints of decreased hearing, mild pain, and fullness of of left ear that began over the last week, Over the last couple days has noticed brown and yellow drainage from the ear. Patient noted about 2 weeks ago she did see her search and rescue officer and had just some drainage and fullness in this ear was told that there was fluid but no infection and started on a steroid which patient took. Patient reports history of chronic ear infections in both ears. Denies fever, chills, body aches, headache, dizziness, sinus pain. Related Data Allergies Allergy/AdvReac Type Severity Reaction Status Date / Time cefprozil (From Cefzil) Allergy Rash Verified 02/14/25 19:37 Review of Systems Constitutional: Constitutional: Reports as per HPI, Denies chills, Denies fatigue, Denies fever(s) and Denies weakness Eyes: Eyes: Reports no additional eye complaints ENT: Reports as per HPI, Denies vertigo, Denies dizziness, Denies epistaxis, Denies nasal congestion and Denies sore throat Comments: left ear pain, drainage from left ear, fullness left ear, decreased hearing left ear Cardiovascular: Cardiovascular: Reports no additional cardiovascular complaints Respiratory: Respiratory: Reports as per HPI, Denies chest congestion and Denies cough Gastrointestinal: Gastrointestinal: Reports no additional gastrointestinal complaints Genitourinary: Genitourinary: Reports no additional female genitourinary complaints Musculoskeletal: Musculoskeletal: Reports no additional musculoskeletal complaints Neurologic: Reports as per HPI, Denies vertigo, Denies dizziness, Denies syncope, Denies headache(s) and Denies weakness Psychiatric: Psychiatric: Reports no additional psychiatric complaints Endocrine: Endocrine: Reports no additional endocrine complaints Hematologic/Lymphatic: Hematologic/Lymphatic: Reports no additional hematologic/lymphatic complaints Allergic/Immunologic: Allergic/Immunologic: Reports no additional allergic/immunologic complaints PMFSH Past Medical History Medical History Deafness in right ear Surgical History Surgical History History of placement of ear tubes Social History Social History Gender identity (if verbalized by the patient): Female Exam Const: General: healthy appearing and no acute distress Nutritional Appearance: well nourished Orientation/consciousness: patient oriented x3 Limitations: no limitations HENMT: Head: normal to inspection Ears: external ears normal and TM's abnormal bilaterally Face/Nose/Sinus: Normal external nose present Face and sinus: normal facial exam and sinuses nontender Mouth: Yes Normal oral and palatal mucosa present Throat: posterior oropharynx normal Other: diffuse erythema to left TM with possible rupture and mild purulence drainage from TM. Right canal- scarring noted no erythema or drainage Neck: Neck: no lymphadenopathy Resp: Effort & Inspection: normal respiratory effort Auscultation: clear to auscultation bilaterally Cardio: Rate: regular rate Rhythm: regular rhythm Skin: General skin exam: normal color Rashes: no rashes Wounds: no wounds Neuro: General: patient oriented x3 Speech: normal speech Gait exam (Neuro): Normal gait present Psych: Mental Status: mental status grossly normal Affect: normal affect Attitude: cooperative Course Course Level of Care: Express Care Visit Medical Decision Making MDM Narrative Medical decision making narrative: Discharge instructions reviewed with patient, as well as provided in writing per nursing staff. The instructions also include specific and strict return/GO TO THE ER as well as f/u information. All questions have been answered, and the patient deny any further questions with discharge and discharge plan. Differential Diagnosis Differential Diagnosis: otitis media, otitis externa, ruptured eardrum, sinusitis. Medical Records Medical records reviewed: Yes I reviewed the external patient's medical records. Discharge Plan Discharge Clinical Impression: Left otitis media with spontaneous rupture of eardrum Patient Disposition: Home Condition: Stable Instructions: Antibiotic Form, Ear Infection (ED), Fluid In The Ear (Serous Otitis Media) (ED) Additional Instructions: -Ear drops as directed for 7-10 days until the pain and swelling are gone. -When administer drug into the affected ear; make sure to ly down with the affected ear facing upward, message the ear canal to help the drops reach the medial end of the canal, then remain in that position for at least 5 mintues. -Avoid using cotton tipped applicator for ears cleaning -Avoid exposing swimming or exposing the affected ear to water during the treatment period Take or alternate tylenol or ibuprofen every 4 - 6 hours if needed for pain. Follow up with primary care provider if condition is not improving in 7 days or sooner if there is new concern. Patient Language: Bulgarian Prescriptions: New amoxicillin 875 mg tablet 875 mg PO Q12H Qty: 20 0RF ofloxacin 0.3 % drops 10 drp LEFT EAR DAILY 7 Days Qty: 10 0RF Follow-up/Referrals: UNKNOWN,DOCTOR [Primary Care Provider] - Time of Disposition: 19:48
== END 2025-02-14 19:51 | disposition home or self-care (01) ==
PROVIDERS: Emergency Provider Nurse Practitioner Family
DX: H66.92 Otitis media, unspecified, left ear (principal); H72.92 Unspecified perforation of tympanic membrane, left ear
CPT/HCPCS: 99213; G0463